=== PATIENT | male | born 1960 | race Caucasian/White ===

== ENCOUNTER 2017-08-12 08:26 | Emergency (ER) | payer BC ==
--- NOTE | 2017-08-12 08:33 | EDM.PDOC ---
ED HPI GENERAL MEDICAL PROBLEM - General Chief Complaint: Abdominal Pain Stated Complaint: RT SIDE PAIN/DISCOMFORT Time Seen by Provider: 08/12/17 08:32 Source of Information: Reports: Patient, RN, RN Notes Reviewed History Limitations: Reports: No Limitations - History of Present Illness INITIAL COMMENTS - FREE TEXT/NARRATIVE: Pt presents to ER by POV with c/o onset of RLQ abdominal pain at 0530 this morning. Pt indicates the pain began at the Rt lateral flank and RLQ region. The pain had been constant until the past half hour, it has eased from a 5/10 to 3/10. Pt last ate last evening. He took 2 tablets of tylenol (unsure of strength) and his lisinopril this morning. He denies nausea, vomiting, diarrhea , constipation, or urinary symptoms. Pt is unsure if he had a fever, or not. He "broke out in a sweat" but isn't sure if it was a fever, or just from the pain. 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 Right Flank Pain Score (Numeric/FACES): 4 - Related Data Allergies Allergy/AdvReac Type Severity Reaction Status Date / Time Penicillins Allergy Hives Verified 08/12/17 08:38 Home Meds: Home Meds Lisinopril 10 mg PO DAILY 08/12/17 [History] Past Medical History HEENT History: Reports: None Cardiovascular History: Reports: None Respiratory History: Reports: None Gastrointestinal History: Reports: None Genitourinary History: Reports: None Musculoskeletal History: Reports: None Neurological History: Reports: None Psychiatric History: Reports: None Endocrine/Metabolic History: Reports: None Hematologic History: Reports: None Immunologic History: Reports: None Oncologic (Cancer) History: Reports: None Dermatologic History: Reports: None Social & Family History - Family History Family Medical History: Noncontributory - Tobacco Use Smoking Status *Q: Never Smoker - Caffeine Use Caffeine Use: Reports: Coffee - Recreational Drug Use Recreational Drug Use: No - Living Situation & Occupation Occupation: Employed ([employer]s [employer] ED ROS GENERAL - Review of Systems Review Of Systems: ROS reveals no pertinent complaints other than HPI. ED EXAM, GENERAL - Physical Exam Exam: See Below Exam Limited By: No Limitations General Appearance: Alert, WD/WN, No Apparent Distress Eye Exam: Bilateral Eye: Normal Inspection (no scleral icterus) Throat/Mouth: Normal Inspection, Normal Voice, No Airway Compromise Head: Atraumatic, Normocephalic Neck: Normal Inspection Respiratory/Chest: No Respiratory Distress, Lungs Clear, Normal Breath Sounds, No Accessory Muscle Use, Chest Non-Tender Cardiovascular: Regular Rate, Rhythm, No Edema, No Murmur GI/Abdominal: Normal Bowel Sounds, Soft, No Distention, No Abnormal Bruit, Tender (mild tenderness to palpation of RLQ). No: Guarding, Rigid, Rebound (Male) Exam: Deferred Rectal (Males) Exam: Deferred Back Exam: Normal Inspection, Full Range of Motion. No: CVA Tenderness (L), CVA Tenderness (R) Extremities: Normal Inspection Neurological: Alert, Oriented, No Motor/Sensory Deficits Psychiatric: Normal Mood Skin Exam: Warm, Dry, Intact, Normal Color, No Rash Course - Vital Signs Last Recorded V/S: Last Vital Signs Temp 34.9 C L 08/12/17 08:47 Pulse 51 L 08/12/17 08:47 Resp 16 08/12/17 08:47 BP 159/77 H 08/12/17 08:47 Pulse Ox 100 08/12/17 08:47 - Orders/Labs/Meds Labs: Laboratory Tests 08/12/17 08/12/17 08/12/17 Range/Units 08:39 08:53 08:53 WBC 25.7 H* (5.0-10.0) 10^3/uL RBC 4.82 (4.6-6.2) 10^6/uL Hgb 14.3 (14.0-18.0) g/dL Hct 42.2 (40.0-54.0) % MCV 87.6 (80-100) fL MCH 29.7 (27.0-34.0) pg MCHC 33.9 (33.0-35.0) g/dL Plt Count 147 L (150-450) 10^3/uL Neut % (Auto) 30.4 L (42.2-75.2) % Lymph % (Auto) 64.7 H (20.5-50.1) % Holmes % (Auto) 4.0 (2-8) % Eos % (Auto) 0.7 L (1.0-3.0) % Baso % (Auto) 0.2 (0.0-1.0) % Add Manual Diff Yes Neutrophils % (Manual) 43 (42-75) % Lymphocytes % (Manual) 52 H (20-50) % Monocytes % (Manual) 3 (2-8) % Eosinophils % (Manual) 2 (1-3) % Sodium 138 (135-145) mmol/L Potassium 4.1 (3.6-5.0) mmol/L Chloride 105 (101-111) mmol/L Carbon Dioxide 25.0 (21.0-31.0) mmol/L Anion Gap 12.1 BUN 19 H (7-18) mg/dL Creatinine 1.7 H (0.6-1.3) mg/dL Est Cr Clr Drug Dosing 51.99 mL/min Estimated GFR (MDRD) 42 BUN/Creatinine Ratio 11.17 Glucose 139 H (74-105) mg/dL Calcium 9.3 (8.4-10.2) mg/dl Total Bilirubin 0.7 (0.2-1.0) mg/dL AST 22 (10-42) IU/L ALT 18 (10-60) IU/L Alkaline Phosphatase 74 (42-121) IU/L Total Protein 6.6 L (6.7-8.2) g/dl Albumin 4.2 (3.2-5.5) g/dl Globulin 2.4 Albumin/Globulin Ratio 1.75 Lipase 32 (22-51) U/L Urine Color Yellow (YELLOW) Urine Appearance Clear (CLEAR) Urine pH 5.5 (5.0-9.0) Ur Specific [place] 1.020 (1.005-1.030) Urine Protein 30 H (NEGATIVE) Urine Glucose (UA) Negative (NEGATIVE) Urine Ketones Negative (NEGATIVE) Urine Occult Blood Trace-intact H (NEGATIVE) Urine Nitrite Negative (NEGATIVE) Urine Bilirubin Negative (NEGATIVE) Urine Urobilinogen 0.2 (0.2-1.0) mg/dL Ur Leukocyte Esterase Negative (NEGATIVE) Urine RBC 0-5 /HPF Urine WBC 0-5 (0-5/HPF) /HPF Ur Epithelial Cells Rare /HPF Urine Bacteria Few (0-FEW/HPF) /HPF Urine Mucus Many H /LPF Urine Other See note - Radiology Interpretation Free Text/Narrative:: CT Abd/Pelvis: B/L renal masses, B/L non-obstructing stones w/in the kidneys, small partially obstructing distal Rt ureter stone, and other incidental findings, see Rad. report. CT Results Date: 08/12/17 (Images/report reviewed with pt.) Departure - Departure Time of Disposition: 10:02 Disposition: Home, Self-Care 01 Condition: Fair Clinical Impression: Kidney stone, Bilateral kidney masses, Fasting hyperglycemia Leukocytosis Qualifiers: Leukocytosis type: unspecified Qualified Code(s): D72.829 - Elevated white blood cell count, unspecified Chronic kidney disease (CKD) Qualifiers: Chronic kidney disease stage: unspecified stage Qualified Code(s): N18.9 - Chronic kidney disease, unspecified - Discharge Information Instructions: Kidney Stones, Renal Mass, Hyperglycemia, Leukocytosis Forms: ED Department Discharge Additional Instructions: Rx: Hydrocodone APAP 5mg/325mg *Do not drive or work while under the influence of this medication. Rx: Zofran 4mg Follow up with your doctor for further evaluation of: kidney stones, kidney masses, leukocytosis (high white blood cells), diabetes screening, prostate, and blood pressure management. Return to ER if worse at any time, or if any new or emergent symptoms develop.
[2017-08-12 08:49] VITALS: BP 159/77
--- NOTE | 2017-08-12 09:37 | CT ---
Clinical history: Hypertensive 57-year-old 205 pound male with right flank/RLQ abdominal pain (starte d 3:00 a.m., now "worsening") and hematuria. Scan technique: Volume acquisition of data emergency unenhanced CT scan of the abdomen and pelvis (ki dneys/ureters/bladder) obtained while patient was lying supine on the Siemens multislice scanner [place], [place]. All data archived in the PACS system for storage, reform atting axial/sagittal/coronal planes and study. Interpretation: Abnormal. 1. *Tiny 1 mm calcification "large" in the distal right ureter at the bladder trigone with associated ipsilateral mild ureterectasis/pyelectasis. 2. Several other tiny 1-2 mm diameter calcifications in the upper and lower pole calyces both kidneys (nephrolithiasis). 3. Round exophytic cortical "mass" lesions kidneys bilaterally: Hyperdense 2 cm diameter mid pole rig ht kidney, largest 3.5 cm diameter lower pole right kidney with marginal calcification, and 12 mm enoc meter lower pole left kidney (tiny benign cyst midpole cortex left kidney). Probable hyperdense cysts however suggest follow-up ultrasound correlation. 4. Numerous phlebolith-like radiopacities in the pelvis. Abnormal enlarged inhomogeneously dense pros rich gland. 5. Sigmoid diverticula without associated inflammatory changes. Normal, short, appendix adjacent to c ecum, RLQ. 6. No inflammatory "dirty" peritoneal fat, pelvic or abdominal mass lesion, mesenteric or retroperito alla lymphadenopathy. 7. Normal caliber aortoiliac vessels. Chronic L5-S1 disc disease. Lung bases clear. No ascites or shayne e intraperitoneal air. CONCLUSION: Partially obstructing tiny distal right ureterolith. Bilateral nephrolithiasis and renal cortical "masses". Diverticulosis.
== END 2017-08-12 10:18 | disposition home or self-care (01) ==
LOC: DL.ED 08:26
DX: N20.2 Calculus of kidney with calculus of ureter (principal); N18.9 Chronic kidney disease, unspecified; D72.829 Elevated white blood cell count, unspecified; R73.9 Hyperglycemia, unspecified; Z88.0 Allergy status to penicillin; Z79.899 Other long term (current) drug therapy
CPT/HCPCS: 36415; 74176; 80053; 81001; 83690; 85025; 99284